=== PATIENT | female | born 1990 | race American Indian/Alaskan Native ===

== ENCOUNTER 2019-01-03 07:05 | Emergency (ER) | payer SELFPAY ==
[2019-01-03 07:07] VITALS: BMI 31.7
[2019-01-03 08:36] LABS: BASO % 0.5 % (0.0-2.0); EOS # 0.1 K/uL (0.0-0.7); EOS % 1.9 % (0.0-4.0); HEMOGLOBIN 12.5 g/dL (12.0-16.0); LYMPH # 2.2 K/uL (1.0-4.3); LYMPH % 33.5 % (20.0-40.0); MEAN CELL VOLUME 88.3 fl (81.0-99.0); MEAN CORPUSCULAR HEMOGLOBIN 29.9 pg (27.0-31.0); MEAN CORPUSCULAR HGB CONC 33.8 g/dL (33.0-37.0); MEAN PLATELET VOLUME 9.4 fl (7.2-11.7); MONO # 0.4 K/uL (0.0-0.8); MONO % 6.5 % (0.0-10.0); NEUT # 3.9 K/uL (1.8-7.0); NEUT % 57.6 % (50.0-75.0); NRBC % 0.1 % (0.0-0.0); RBC 4.19 Mil/uL (3.80-5.20); RED CELL DISTRIBUTION WIDTH 14.2 % (11.5-14.5); WHITE BLOOD COUNT 6.7 K/uL (4.8-10.8)
--- NOTE | 2019-01-03 08:44 | ED PDOC ---
HPI: Abdomen Time Seen by Provider: 01/03/19 07:58 Chief Complaint (Nursing): Abdominal Pain Chief Complaint (Provider): Abdominal Pain History Per: Patient History/Exam Limitations: no limitations Onset/Duration Of Symptoms: Days (x 1) Current Symptoms Are (Timing): Still Present Severity: Severe Location Of Pain/Discomfort: RLQ, LLQ Quality Of Discomfort: "Pain" Associated Symptoms: Nausea Additional Complaint(s): 28 year old female with a history of PCOS and HTN presents to the ED for evaluation of lower abdominal pain and nausea since she woke up this morning. Patient reports her pain at onset was severe. She denies vomiting and diarrhea. PMD: none provided Abnormal Vaginal Bleeding: No Last Menstral Period: 12/14/2018 Past Medical History Reviewed: Historical Data Vital Signs: Last Vital Signs Temp 98.1 F 01/03/19 07:07 Pulse 84 01/03/19 07:07 Resp 18 01/03/19 07:07 BP 155/90 H 01/03/19 07:07 Pulse Ox 100 01/03/19 07:07 - Medical History PMH: HTN (no medication) Denies: Chronic Kidney Disease - Surgical History Surgical History: Appendectomy - Family History Family History: States: Unknown Family Hx - Home Medications Home Medications: Ambulatory Orders Medication Instructions Recorded Acetaminophen [Tylenol 325mg tab] 650 mg PO PRN PRN 01/03/19 - Allergies Allergies/Adverse Reactions: Allergies Allergy/AdvReac Type Severity Reaction Status Date / Time No Known Allergies Allergy Verified 01/03/19 07:29 Review of Systems ROS Statement: Except As Marked, All Systems Reviewed And Found Negative Gastrointestinal: Positive for: Nausea, Abdominal Pain (lower). Negative for: Vomiting, Diarrhea, Constipation Physical Exam - Reviewed Nursing Documentation Reviewed: Yes Vital Signs Reviewed: Yes - Physical Exam Appears: Positive for: Non-toxic, No Acute Distress Head Exam: Positive for: ATRAUMATIC, NORMAL INSPECTION, NORMOCEPHALIC Skin: Positive for: Normal Color, Warm, Dry Eye Exam: Positive for: EOMI, Normal appearance, PERRL Neck: Positive for: Normal, Painless ROM, Supple Cardiovascular/Chest: Positive for: Regular Rate, Rhythm. Negative for: Murmur Respiratory: Positive for: Normal Breath Sounds. Negative for: Respiratory Distress Gastrointestinal/Abdominal: Positive for: Soft, Guarding (bilateral) Back: Positive for: Normal Inspection. Negative for: L CVA Tenderness, R CVA Tenderness Extremity: Positive for: Normal ROM (x 4). Negative for: Deformity Neurological/Psych: Positive for: Awake, Alert, Normal Tone, Oriented. Negative for: Motor/Sensory Deficits - Laboratory Results Result Diagrams: 01/03/19 08:15 01/03/19 10:01 - ECG O2 Sat by Pulse Oximetry: 100 (RA) Pulse Ox Interpretation: Normal Medical Decision Making Medical Decision Makin:19 MDM: workup for abdominal pain in setting of PCOS Labs, CT, reassess. 13:33 CT abd/pelvis FINDINGS: LOWER THORAX: Unremarkable. LIVER: Unremarkable. No gross lesion or ductal dilatation. GALLBLADDER AND BILE DUCTS: Unremarkable. PANCREAS: Unremarkable. No gross lesion or ductal dilatation. SPLEEN: Unremarkable. ADRENALS: Unremarkable. No mass. KIDNEYS AND URETERS: Unremarkable. No hydronephrosis. No solid mass. VASCULATURE: Unremarkable. No aortic aneurysm. No aortic atherosclerotic calcification or mural plaque present. BOWEL: Unremarkable. No obstruction. No gross mural thickening. APPENDIX: Not identified. No definitive CT pattern of appendicitis. PERITONEUM: Unremarkable. No free fluid. No free air. LYMPH NODES: Unremarkable. No enlarged lymph nodes. BLADDER: Unremarkable. REPRODUCTIVE: There is a 3.3 x 2.4 cm right adnexal cyst with local fluid associated which is felt to be too inferior to related to the appendix though the appendix not clearly identified. This felt to represent a partially ruptured cyst. Left adnexa compartment appears unremarkable. BONES: No acute fracture. OTHER FINDINGS: None. IMPRESSION: Partially ruptured right adnexal cyst felt to present the right adnexal compartment 3.3 cm greatest dimension with limited local fluid related. The appendix not identified however appendicitis is not felt to be demonstrated. Consider follow-up transvaginal pelvic ultrasonography. Examination otherwise appears unremarkable. 13:48 Patient is tolerating PO. Pain is gone and patient is stable for discharge. He will follow up with [employer]. Scribe Attestation: Documented by Milana Martines, acting as a scribe Jacqueline Norwood MD Provider Scribe Attestation: All medical record entries made by the Scribe were at my direction and personally dictated by me. I have reviewed the chart and agree that the record accurately reflects my personal performance of the history, physical exam, medical decision making, and the department course for this patient. I have also personally directed, reviewed, and agree with the discharge instructions and disposition. 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 Take Tylenol or Motrin for pain. Return to the emergency department if pain becomes more severe, fever, or other new symptoms. Instructions: Ovarian Cyst (DC) Forms: [employer] [place] (Pashto) Print Language: TAIWANESE
[2019-01-03 09:10] LABS: SQUAMOUS EPITHIAL 22 /hpf (0-5); URINE BACTERIA RARE (<OCC); URINE BILIRUBIN NEGATIVE (NEGATIVE); URINE BLOOD NEGATIVE (NEGATIVE); URINE CLARITY CLOUDY (Clear); URINE COLOR YELLOW (YELLOW); URINE GLUCOSE (UA) NEG (NEGATIVE); URINE LEUKOCYTE ESTERASE NEG Leu/uL (Negative); URINE PROTEIN NEGATIVE (NEGATIVE); URINE UROBILINOGEN 0.2-1.0 mg/dL (0.2-1.0)
[2019-01-03 10:34] LABS: ALB/GLOB RATIO 1.3 (1.0-2.1); ALBUMIN 4.8 g/dL (3.5-5.0); ALT/SGPT 30 U/L (9-52); AST/SGOT 25 U/L (14-36); BLOOD UREA NITROGEN 10 mg/dl (7-17); CALCIUM 9.8 mg/dL (8.4-10.2); GFR NON-AFRICAN AMERICAN > 60
[2019-01-03] MEDS ORDERED: Sodium Chloride 0.9% 50 ML IV ONE (11:14)
[2019-01-03] MEDS ORDERED: Iohexol 300 100 ML IJ ONE (11:14)
--- NOTE | 2019-01-03 13:37 | CT ---
Date of service: 01/03/2019 PROCEDURE: CT Abdomen and Pelvis with contrast HISTORY: lower abdominal pain COMPARISON: None. TECHNIQUE: Following the intravenous administration of iodinated contrast material, a CT examination of the abdomen and pelvis was performed from the domes of the diaphragms to the symphysis pubis with reformatted datasets provided in axial, sagittal and coronal planes. Oral contrast was not administered as per referring physician request.Contrast dose: Radiation dose: Total exam DLP = 770.18 mGy-cm. This CT exam was performed using one or more of the following dose reduction techniques: Automated exposure control, adjustment of the mA and/or kV according to patient size, and/or use of iterative reconstruction technique. FINDINGS: LOWER THORAX: Unremarkable. LIVER: Unremarkable. No gross lesion or ductal dilatation. GALLBLADDER AND BILE DUCTS: Unremarkable. PANCREAS: Unremarkable. No gross lesion or ductal dilatation. SPLEEN: Unremarkable. ADRENALS: Unremarkable. No mass. KIDNEYS AND URETERS: Unremarkable. No hydronephrosis. No solid mass. VASCULATURE: Unremarkable. No aortic aneurysm. No aortic atherosclerotic calcification or mural plaque present. BOWEL: Unremarkable. No obstruction. No gross mural thickening. APPENDIX: Not identified. No definitive CT pattern of appendicitis. PERITONEUM: Unremarkable. No free fluid. No free air. LYMPH NODES: Unremarkable. No enlarged lymph nodes. BLADDER: Unremarkable. REPRODUCTIVE: There is a 3.3 x 2.4 cm right adnexal cyst with local fluid associated which is felt to be too inferior to related to the appendix though the appendix not clearly identified. This felt to represent a partially ruptured cyst. Left adnexa compartment appears unremarkable. BONES: No acute fracture. OTHER FINDINGS: None. IMPRESSION: Partially ruptured right adnexal cyst felt to present the right adnexal compartment 3.3 cm greatest dimension with limited local fluid related. The appendix not identified however appendicitis is not felt to be demonstrated. Consider follow-up transvaginal pelvic ultrasonography. Examination otherwise appears unremarkable.
[2019-01-03 14:17] VITALS: BP 140/86; PULSE 78; RESP 20; TEMP 97.7
[2019-01-12 14:40] VITALS: O2SAT 100
== END 2019-01-03 14:41 | disposition home or self-care (01) ==
LOC: H.ER 07:05
DX: N83.201 Unspecified ovarian cyst, right side (principal); I10 Essential (primary) hypertension
CPT/HCPCS: 74177; 80053; 81003; 81025; 85025; 99283; Q9967